=== PATIENT | male | born 1985 | race African-American/Black ===

== ENCOUNTER 2023-05-10 13:05 | Inpatient (IN) | payer SELFPAY ==
[~2023-05-10] VITALS: Ht 175.3 cm; Wt 84.8 kg
[2023-05-10] MEDS ORDERED: TETANUS, DIPHTHERIA, PERTUSSIS VAC/PF 0.5ML (>10YR OLD) IM ONE (13:45)
[2023-05-10] MEDS ORDERED: KETOROLAC 15MG/ML VIAL IV ONE (13:45)
[2023-05-10] MEDS ORDERED: VANCOMYCIN 1G PREMIX 200 ML IV SCH (13:45)
[2023-05-10 14:27] LABS: BASOPHILS % 0.5 % (0.0-2.0); CHLORIDE 109 mEq/L (98-107); DIFFERENTIAL COMMENT 0; HEMATOCRIT. 40.7 % (42.0-52.0); HEMOGLOBIN. 13.5 g/dL (14.0-18.0); INDEX HEMOLYSI 1 (1-3); INDEX ICTERIC 1 (1-4); INDEX LIPEMIC 1 (1-3); LYMPHOCYTES % 31.6 % (20.0-50.0); MEAN CORPUSCULAR HEMOGLOBIN 35.2 pg (28.0-32.0); MEAN CORPUSCULAR HGB CONC 33.2 g/dL (31.0-37.0); MEAN CORPUSCULAR VOLUME 105.8 fL (80.0-94.0); MEAN PLATELET VOLUME 8.7 fl (7.4-10.4); MONOCYTES % 8.2 % (2.0-8.0); NEUTROPHILS % 58.7 % (40.0-76.0); PLATELET 232 x1000/uL (130-400); POTASSIUM 3.9 mEq/L (3.5-5.1); RED BLOOD CELL COUNT 3.84 mill/uL (4.7-6.1); RED CELL DISTRIBUTION WIDTH 11.8 % (11.6-14.6); SODIUM 139 mEq/L (136-145); WHITE BLOOD COUNT 3.4 x1000/uL (4.5-11.0)
[2023-05-10 14:36] LABS: ALANINE AMINOTRANSFERASE 16 IU/L (13-61); ALBUMIN 3.4 g/dL (3.4-5.0); ASPARTATE AMINOTRANSFERASE 20 IU/L (15-37); BILIRUBIN TOTAL 0.7 mg/dL (0.1-1.0); CALCIUM 8.7 mg/dL (8.5-10.1); CARBON DIOXIDE 25 mEq/L (21-32); CREATININE 1.1 mg/dL (0.6-1.3); GLUCOSE 106 mg/dL (70-105); PROTEIN TOTAL 7.2 g/dL (6.0-8.3); UREA NITROGEN BLOOD 10 mg/dL (7-21)
[2023-05-10] MEDS ORDERED: DIPHENHYDRAMINE 50MG/ML VIAL IV PRN (16:00)
[2023-05-10] MEDS ORDERED: ONDANSETRON HCL 4MG/2ML INJ IV PRN (16:00)
[2023-05-10] MEDS ORDERED: MAGNESIUM/ALUMINUM HYDROXIDE/SIMETHICONE 30ML UDC PO PRN (16:00)
[2023-05-10] MEDS ORDERED: ZOLPIDEM TARTRATE 5MG TABLET PO PRN (16:00)
[2023-05-10] MEDS ORDERED: CLONIDINE 0.1MG TABLET PO PRN (16:00)
[2023-05-10] MEDS ORDERED: IPRATROPIUM/ALBUTEROL 0.5-3(2.5)MG/3ML NEB HHN PRN (16:00)
[2023-05-10] MEDS ORDERED: ACETAMINOPHEN 325MG TABLET PO PRN (16:00)
[2023-05-10] MEDS ORDERED: DOCUSATE SODIUM 100MG CAPSULE PO PRN (16:00)
[2023-05-10 17:01] LABS: T4 FREE 0.99 ng/dL (0.76-1.46); THYROID STIMULATING HORMONE 0.98 uIU/mL (0.36-3.74)
[2023-05-10 17:29] LABS: FOLIC ACID (FOLATE) SERUM 8.1 ng/mL (>5.38)
[2023-05-10 17:31] LABS: CLARITY URINE CLEAR (CLEAR); COLOR URINE YELLOW (YELLOW); GLUCOSE URINE NEGATIVE (NEGATIVE); KETONES URINE NEGATIVE (NEGATIVE); LEUKOCYTE ESTERASE URINE NEGATIVE (NEGATIVE); NITRITE URINE NEGATIVE (NEGATIVE); OCCULT BLOOD URINE NEGATIVE (NEGATIVE); PH URINE 6.5 (4.5-8.0); PROTEIN URINE NEGATIVE (NEGATIVE)
[2023-05-10 17:42] LABS: *AMPHETAMINES SCREEN URINE NEGATIVE (NEGATIVE); *BARBITURATES SCREEN URINE NEGATIVE (NEGATIVE); *BENZODIAZEPINES SCREEN URINE NEGATIVE (NEGATIVE); *COCAINE SCREEN URINE NEGATIVE (NEGATIVE); CANNABINOID URINE SCREEN PRESUMTIVE POSITIVE (NEGATIVE); ECSTASY MDMA SCREEN URINE NEGATIVE (NEGATIVE); METHADONE URINE SCREEN NEGATIVE (NEGATIVE); OPIATES URINE SCREEN NEGATIVE (NEGATIVE); PHENCYCLIDINE URINE SCREEN NEGATIVE (NEGATIVE)
[2023-05-10] MEDS ORDERED: CHLORDIAZEPOXIDE 25MG CAPSULE PO PRN (17:45)
[2023-05-10] MEDS ORDERED: LORAZEPAM 2MG/ML CPJ IV PRN (18:00)
[2023-05-10] MEDS: ACETAMINOPHEN 325MG TABLET PO PRN (19:11)
[2023-05-10 20:00] VITALS: BP 100/55; PULSE 60; RESP 18; TEMP 97.7
[2023-05-10 20:40] VITALS: BP 122/74; PULSE 70; RESP 18; TEMP 97.8
[2023-05-10] MEDS: ENOXAPARIN 40MG/0.4ML SYR SUBCUT SCH (22:25)
[2023-05-10] MEDS: PIPERACILLIN/TAZOBACTAM 3.375 G in DEXTROSE 5% WATER 50 ML IV SCH (23:22)
[2023-05-11] VITALS: BP 103/46; PULSE 54; RESP 20; TEMP 97.9
[2023-05-11 00:20] LABS: TROPONIN I HIGH SENSITIVITY 6 ng/L (<78)
[2023-05-11] MEDS: ACETAMINOPHEN 325MG TABLET PO PRN ×2 (02:27→14:13)
[2023-05-11] MEDS: VANCOMYCIN 1G PREMIX 200 ML IV SCH ×2 (03:44→22:00)
[2023-05-11 04:00] VITALS: BP 104/56; PULSE 49; RESP 18; TEMP 98.1
[2023-05-11] MEDS: PIPERACILLIN/TAZOBACTAM 3.375 G in DEXTROSE 5% WATER 50 ML IV SCH ×2 (05:17→14:14)
[2023-05-11] MEDS ORDERED: PANTOPRAZOLE 40MG DR TABLET PO SCH (07:20)
[2023-05-11 08:00] VITALS: BP 107/49; PULSE 50; RESP 20; TEMP 97.9
[2023-05-11] MEDS: THIAMINE HCL 100MG TABLET PO SCH (09:09)
[2023-05-11] MEDS: MULTIVITAMINS,THER W-MINERALS TABLET PO SCH (09:09)
[2023-05-11] MEDS: FOLIC ACID 1MG TABLET PO SCH (09:10)
[2023-05-11] MEDS: KETOROLAC 15MG/ML VIAL IV PRN ×2 (09:11→22:02)
[2023-05-11 12:00] VITALS: BP 114/60; PULSE 50; RESP 20; TEMP 97.9
[2023-05-11 17:46] LABS: BASOPHILS % 0.5 % (0.0-2.0); DIFFERENTIAL COMMENT 0; EOSINOPHILS % 0.6 % (0.0-5.0); HEMOGLOBIN. 13.8 g/dL (14.0-18.0); LYMPHOCYTES % 25.6 % (20.0-50.0); MEAN CORPUSCULAR HEMOGLOBIN 36.3 pg (28.0-32.0); MEAN CORPUSCULAR HGB CONC 34.4 g/dL (31.0-37.0); MEAN CORPUSCULAR VOLUME 105.4 fL (80.0-94.0); MEAN PLATELET VOLUME 8.6 fl (7.4-10.4); MONOCYTES % 8.4 % (2.0-8.0); NEUTROPHILS % 64.9 % (40.0-76.0); PLATELET 219 x1000/uL (130-400); RED BLOOD CELL COUNT 3.79 mill/uL (4.7-6.1); RED CELL DISTRIBUTION WIDTH 12.1 % (11.6-14.6); WHITE BLOOD COUNT 5.3 x1000/uL (4.5-11.0)
[2023-05-11 18:10] LABS: CHLORIDE 109 mEq/L (98-107); INDEX HEMOLYSI 1 (1-3); INDEX ICTERIC 1 (1-4); INDEX LIPEMIC 1 (1-3); POTASSIUM 3.9 mEq/L (3.5-5.1); SODIUM 138 mEq/L (136-145)
[2023-05-11 18:19] LABS: ALANINE AMINOTRANSFERASE 16 IU/L (13-61); ALBUMIN 3.3 g/dL (3.4-5.0); ASPARTATE AMINOTRANSFERASE 16 IU/L (15-37); BILIRUBIN DIRECT 0.2 mg/dL (0.0-0.2); BILIRUBIN TOTAL 0.8 mg/dL (0.1-1.0); CALCIUM 8.5 mg/dL (8.5-10.1); CARBON DIOXIDE 24 mEq/L (21-32); CREATININE 1.2 mg/dL (0.6-1.3); GLUCOSE 89 mg/dL (70-105); PHOSPHORUS 3.7 mg/dL (2.5-4.9); UREA NITROGEN BLOOD 9 mg/dL (7-21)
[2023-05-11 20:00] VITALS: BP 111/52; PULSE 52; RESP 19; TEMP 98.4
[2023-05-11] MEDS: ENOXAPARIN 40MG/0.4ML SYR SUBCUT SCH (22:05)
[2023-05-12] VITALS: BP 119/56; PULSE 71; RESP 18; TEMP 97.3
[2023-05-12] MEDS: VANCOMYCIN 1G PREMIX 200 ML IV SCH (03:08)
[2023-05-12] MEDS: PIPERACILLIN/TAZOBACTAM 3.375 G in DEXTROSE 5% WATER 50 ML IV SCH ×2 (03:08→06:30)
[2023-05-12 04:00] VITALS: BP 108/58; PULSE 68; RESP 16; TEMP 98.2
[2023-05-12 07:05] LABS: BASOPHILS % 0.2 % (0.0-2.0); DIFFERENTIAL COMMENT 0; EOSINOPHILS % 1.1 % (0.0-5.0); HEMATOCRIT. 40.6 % (42.0-52.0); LYMPHOCYTES % 37.6 % (20.0-50.0); MEAN CORPUSCULAR HEMOGLOBIN 36.6 pg (28.0-32.0); MEAN CORPUSCULAR HGB CONC 34.4 g/dL (31.0-37.0); MEAN CORPUSCULAR VOLUME 106.2 fL (80.0-94.0); MEAN PLATELET VOLUME 8.9 fl (7.4-10.4); MONOCYTES % 9.1 % (2.0-8.0); PLATELET 203 x1000/uL (130-400); RED BLOOD CELL COUNT 3.82 mill/uL (4.7-6.1); RED CELL DISTRIBUTION WIDTH 11.7 % (11.6-14.6); WHITE BLOOD COUNT 5.3 x1000/uL (4.5-11.0)
[2023-05-12 08:29] LABS: CALCIUM 8.2 mg/dL (8.5-10.1); CARBON DIOXIDE 22 mEq/L (21-32); CHLORIDE 110 mEq/L (98-107); INDEX HEMOLYSI 4 (1-3); INDEX ICTERIC 1 (1-4); INDEX LIPEMIC 1 (1-3); SODIUM 138 mEq/L (136-145)
[2023-05-12 08:32] LABS: CREATININE 1.2 mg/dL (0.6-1.3); GLUCOSE 78 mg/dL (70-105); PHOSPHORUS 3.8 mg/dL (2.5-4.9); UREA NITROGEN BLOOD 8 mg/dL (7-21)
[2023-05-12] MEDS: MULTIVITAMINS,THER W-MINERALS TABLET PO SCH (09:39)
[2023-05-12] MEDS: FOLIC ACID 1MG TABLET PO SCH (09:40)
[2023-05-12] MEDS: THIAMINE HCL 100MG TABLET PO SCH (09:40)
[2023-05-12 09:41] VITALS: RESP 18
[2023-05-12] MEDS: KETOROLAC 15MG/ML VIAL IV PRN (09:41)
[2023-05-12 09:52] LABS: POTASSIUM 4.3 mEq/L (3.5-5.1)
[2023-05-12] MEDS ORDERED: FAMOTIDINE 20MG TABLET PO SCH (12:00)
[2023-05-12] MEDS ORDERED: CEPH500C2 MT (14:44)
[2023-05-12 16:05] VITALS: BP 111/67; PULSE 87; TEMP 98.2; O2SAT 100
== END 2023-05-12 16:55 | disposition home or self-care (01) | DRG 383 ==
LOC: ER 13:05 → 6EST 21:03
PROVIDERS: ADMIT Hospitalist; ATTEND Hospitalist
DX: L03.116 Cellulitis of left lower limb (principal); E44.1 Mild protein-calorie malnutrition; S90.862A Insect bite (nonvenomous), left foot, initial encounter; D53.9 Nutritional anemia, unspecified; D72.819 Decreased white blood cell count, unspecified; J45.909 Unspecified asthma, uncomplicated; R73.9 Hyperglycemia, unspecified; R00.1 Bradycardia, unspecified; Z68.27 Body mass index [BMI] 27.0-27.9, adult; Z87.09 Personal history of other diseases of the respiratory system; Y92.89 Other specified places as the place of occurrence of the external cause; W57.XXXA Bitten or stung by nonvenomous insect and other nonvenomous arthropods, initial encounter; Y93.89 Activity, other specified; Y99.8 Other external cause status
CPT/HCPCS: 36415; 71045; 73630; 73721; 80048; 80053; 80061; 80076; 80202; 80305; 80320; 81003; 82607; 82746; 83036; 83605; 83735; 83880; 84100; 84145; 84439; 84443; 84484; 84550; 85025; 90715; 93005; 93970; 99285; J1650; J1885; J2543; J3370; J7060; G0480

== ENCOUNTER 2024-07-09 08:46 | Emergency (ER) | payer MEDICAID ==
[~2024-07-09] VITALS: Ht 177.8 cm; Wt 90.7 kg
[~2024-07-09 08:46] MED LIST: CEPH500C2 MT
[2024-07-09 08:49] VITALS: BP 114/66; PULSE 64; RESP 16; TEMP 98.2; O2SAT 98
[2024-07-09] MEDS ORDERED: BO1 TP (10:04)
[2024-07-09] MEDS ORDERED: BISM1BAN TP (10:06)
[2024-07-09] MEDS ORDERED: POLY1BAN TP (10:06)
== END 2024-07-09 10:45 | disposition home or self-care (01) ==
LOC: ER 08:58
DX: S81.802A Unspecified open wound, left lower leg, initial encounter (principal); Z79.899 Other long term (current) drug therapy; X58.XXXA Exposure to other specified factors, initial encounter; Y92.89 Other specified places as the place of occurrence of the external cause; Y93.01 Activity, walking, marching and hiking; Y99.8 Other external cause status
CPT/HCPCS: 99282